=== PATIENT | female | born 1975 | race Caucasian/White ===

== ENCOUNTER 2017-09-16 13:47 | Emergency (ER) | payer BC, OTHER ==
[2017-09-16 14:45] LABS: APPEARANCE,URINE Cloudy (CLEAR); BILIRUBIN,URINE Negative (NEGATIVE); COLOR,URINE Yellow (YELLOW); GLUCOSE, URINE (UA) Negative (NEGATIVE); KETONES,URINE Negative (NEGATIVE); LEUKOCYTE ESTERASE ,URINE Moderate (NEGATIVE); NITRATE,URINE Negative (NEGATIVE); OCCULT BLOOD,URINE Small (NEGATIVE); PROTEIN,URINE POS 1+ (NEGATIVE)
[2017-09-16 15:02] LABS: HCG,QUAL RESULT NEGATIVE (NEGATIVE)
[2017-09-16 15:17] LABS: BACTERIA,URINE Few /HPF (None Seen); MUCUS,URINE Few LPF (None Seen); RBC,URINE None Seen /HPF (0-1); SQUAMOUS EPITHELIAL CELL,UR 50-100 /LPF (0-2); WBC,URINE 26-50 /HPF (0-1)
[2017-09-16] MEDS ORDERED: PHENAZOPYRIDINE HCL 200 MG TABLET ONE (15:18)
[2017-09-16] MEDS ORDERED: KETOROLAC TROMETHAMINE 30MG/ML ONE (15:18)
== END 2017-09-16 15:29 | disposition home or self-care (01) ==
LOC: EDH 13:47
DX: N39.0 Urinary tract infection, site not specified (principal); R30.0 Dysuria; M54.5 Low back pain; Z88.1 Allergy status to other antibiotic agents; Z87.891 Personal history of nicotine dependence
CPT/HCPCS: 81001; 81025; 87088; 87186; 96372; 99284; J1885

== ENCOUNTER 2017-12-24 22:21 | Emergency (ER) | payer SELFPAY ==
[2017-12-24 22:52] LABS: BILIRUBIN,URINE Negative (NEGATIVE); COLOR,URINE Orange (YELLOW); GLUCOSE, URINE (UA) Negative (NEGATIVE); KETONES,URINE Negative (NEGATIVE); LEUKOCYTE ESTERASE ,URINE Small (NEGATIVE); NITRATE,URINE Negative (NEGATIVE); OCCULT BLOOD,URINE Large (NEGATIVE); PROTEIN,URINE Trace (NEGATIVE); UROBILINOGEN,URINE 0.2 mg/dL (0.2-1.0)
[2017-12-24 22:54] LABS: APPEARANCE,URINE CLOUDY (CLEAR); HCG,QUAL RESULT NEGATIVE (NEGATIVE)
[2017-12-24 23:05] LABS: AMORPHOUS SEDIMENT,UR Moderate /LPF (None Seen); BACTERIA,URINE Moderate /HPF (None Seen); RBC,URINE 51-100 /HPF (0-1)
[2017-12-24] MEDS ORDERED: LIDOCAINE HCL-MPF 1% 2ML VIAL ONE (23:16)
[2017-12-24] MEDS ORDERED: CEFTRIAXONE SODIUM 1 GM ONE (23:16)
[2017-12-24] MEDS ORDERED: PHENAZOPYRIDINE HCL 200 MG TABLET ONE (23:16)
== END 2017-12-24 23:54 | disposition home or self-care (01) ==
LOC: EDH 22:21
DX: N30.00 Acute cystitis without hematuria (principal); F41.9 Anxiety disorder, unspecified; Z88.1 Allergy status to other antibiotic agents; Z88.6 Allergy status to analgesic agent
CPT/HCPCS: 81001; 81025; 87088; 87186; 96372; 99284; J0696; J3490

== ENCOUNTER 2018-04-27 22:40 | Emergency (ER) | payer SELFPAY ==
[2018-04-27 23:11] LABS: APPEARANCE,URINE Clear (CLEAR); BILIRUBIN,URINE Negative (NEGATIVE); COLOR,URINE Yellow (YELLOW); GLUCOSE, URINE (UA) Negative (NEGATIVE); KETONES,URINE Negative (NEGATIVE); LEUKOCYTE ESTERASE ,URINE Negative (NEGATIVE); NITRATE,URINE Negative (NEGATIVE); OCCULT BLOOD,URINE Trace (NEGATIVE); PROTEIN,URINE POS 1+ (NEGATIVE)
[2018-04-27 23:44] LABS: HCG,QUAL RESULT NEGATIVE (NEGATIVE)
[2018-04-27] MEDS ORDERED: METOCLOPRAMIDE 10 MG/2 ML VIAL ONE (23:46)
[2018-04-27] MEDS ORDERED: KETOROLAC TROMETHAMINE 30MG/ML ONE (23:47)
[2018-04-27] MEDS ORDERED: SODIUM CHLORIDE 0.9% 50 ML IV ONE (23:48)
[2018-04-27 23:54] LABS: BASOPHILS % (AUTO) 0.8 % (0.0-5.0); EOSINOPHILS % (AUTO) 1.1 % (0.0-8.0); HEMATOCRIT 38.5 % (36-48); LYMPHOCYTES % (AUTO) 23.7 % (21.0-51.0); MEAN CORPUSCULAR HGB CONC 34.3 g/dL (32.0-36.0); MEAN CORPUSCULAR VOLUME 84.5 fL (79-99); MONOCYTES % (AUTO) 7.1 % (3.0-13.0); NEUTROPHILS % (AUTO) 67.3 % (40.0-77.0); PLATELET COUNT (AUTO) 311 K/uL (130-400); RED BLOOD CELL COUNT(AUTO) 4.55 MIL/uL (4.00-5.50); RED CELL DISTRIBUTION WIDTH 12.5 % (11.0-15.5); WHITE BLOOD COUNT (AUTO) 11.5 K/uL (4.8-10.8)
[2018-04-28 00:54] LABS: CREATININE 0.8 mg/dL (0.5-1.5); POTASSIUM 4.2 mmol/L (3.5-5.1)
== END 2018-04-28 01:06 | disposition home or self-care (01) ==
LOC: EDH 22:40
DX: G43.909 Migraine, unspecified, not intractable, without status migrainosus (principal); M54.5 Low back pain; R35.0 Frequency of micturition; Z88.5 Allergy status to narcotic agent; Z88.1 Allergy status to other antibiotic agents; Z91.018 Allergy to other foods
CPT/HCPCS: 36415; 80048; 81003; 81025; 85025; 96374; 96375; 99284; J1885; J2765